=== PATIENT | male | born 1960 | race Caucasian/White ===

== ENCOUNTER 2023-01-10 22:49 | Emergency (ER) | payer MEDICAID ==
[~2023-01-10] VITALS: Ht 172.7 cm; Wt 77.0 kg
[2023-01-10 22:54] VITALS: BP 134/84
[2023-01-11] MEDS ORDERED: ACET-2708 MT (06:14)
[2023-01-11] MEDS ORDERED: NAPR500T7 MT (06:14)
== END 2023-01-11 08:08 | disposition home or self-care (01) ==
LOC: ER 22:49
DX: M25.561 Pain in right knee (principal); M25.562 Pain in left knee; G89.29 Other chronic pain
CPT/HCPCS: 73564; 99283; Z7610